=== PATIENT | female | born 1985 | race Caucasian/White ===

== ENCOUNTER 2020-11-06 07:30 | Inpatient (IN) | payer MEDICAID, SELFPAY ==
[~2020-11-06] VITALS: Ht 160 cm; Wt 112.5 kg
[2020-11-06] MEDS ORDERED: CEFAZOLIN 2 GM IVPB PREMIX 50 ML IV ONE ×2 (08:15→15:04)
[2020-11-06] MEDS ORDERED: CITRIC ACID/SODIUM CITRATE 30 ML UDC PO ONE (08:15)
[2020-11-06] MEDS ORDERED: LR 1,000 ML IV ONE (08:15)
[2020-11-06] MEDS ORDERED: METOCLOPRAMIDE HCL 10 MG/2 ML VIAL IVP ONE (08:15)
[2020-11-06 08:53] LABS: BASOPHILS # (AUTO) 0.1 K/uL (0.0-0.2); BASOPHILS % (AUTO) 0.5 % (0.0-2.0); EOSINOPHILS # (AUTO) 0.1 K/uL (0.0-0.4); EOSINOPHILS % (AUTO) 1.1 % (0.0-4.0); HEMOGLOBIN 12.9 g/dL (12.0-16.0); LYMPHOCYTES # (AUTO) 2.3 K/uL (1.0-5.5); LYMPHOCYTES % (AUTO) 20.8 % (20.5-51.5); MEAN CORPUSCULAR HEMOGLOBIN 32 pg (27-31); MEAN CORPUSCULAR HGB CONC 35 % (32-36); MEAN CORPUSCULAR VOLUME 91 fL (79.0-98.0); MONOCYTES # (AUTO) 0.8 K/uL (0.0-1.0); MONOCYTES % (AUTO) 7.2 % (1.7-9.3); NEUTROPHILS # (AUTO) 7.6 K/uL (1.8-7.7); NEUTROPHILS % (AUTO) 70.4 % (40.0-70.0); PLATELET COUNT (AUTO) 244 K/uL (130-430); RED BLOOD CELL COUNT(AUTO) 4.06 MIL/uL (4.2-6.2); RED CELL DISTRIBUTION WIDTH 14.3 % (9.0-15.0); WHITE BLOOD COUNT (AUTO) 10.9 K/uL (4.8-10.8)
[2020-11-06 09:10] LABS: BILIRUBIN,URINE NEGATIVE (NEGATIVE); BLOOD, URINE 3+ (NEGATIVE); COLOR,URINE YELLOW (YELLOW); GLUCOSE,URINE NEGATIVE (NEGATIVE); KETONES,URINE NEGATIVE (NEGATIVE); LEUKOCYTE ESTERASE ,URINE 2+ (NEGATIVE); NITRITE, URINE NEGATIVE (NEGATIVE); PH,URINE 7.5 (5.0-8.0); PROTEIN URINE NEGATIVE (NEGATIVE); UROBILINOGEN,URINE 0.2 (0.2-1.0)
[2020-11-06 09:11] LABS: CLARITY/URINE HAZY (CLEAR)
[2020-11-06 09:53] LABS: BACTERIA,URINE MODERATE /HPF (None Seen); RBC,URINE 20-50 /HPF (0-3)
[2020-11-06 11:19] VITALS: BP_SYST 132
[2020-11-06] MEDS ORDERED: ONDANSETRON HCL 4 MG/2 ML VIAL IVP PRN (13:45)
[2020-11-06] MEDS ORDERED: NALOXONE HCL 0.4 MG/ML AMP (NARCAN) IVP PRN ×3 (13:45→14:15)
[2020-11-06] MEDS ORDERED: KETOROLAC TROMETHAMINE 60 MG/2 ML VIAL IM PRN (13:45)
[2020-11-06] MEDS ORDERED: DIPHENHYDRAMINE INJ 50 MG/ML VIAL IM PRN (13:45)
[2020-11-06 13:55] VITALS: BP_SYST 132
[2020-11-06] MEDS ORDERED: MEPERIDINE HCL/PF 25 MG/ML DISP.SYRIN ONE (14:11)
[2020-11-06] MEDS ORDERED: MEPERIDINE HCL/PF 25 MG/ML DISP.SYRIN IVP PRN (14:15)
[2020-11-06] MEDS ORDERED: HYDROmorphone 1 MG/ML INJ. CARTRIDGE IVP PRN ×2 (14:15)
[2020-11-06] MEDS ORDERED: OXYTOCIN 10 UNIT/ML VIAL IV ONE (15:04)
[2020-11-06] MEDS ORDERED: LR 1,000 ML IV.SOLN IV ONE (15:04)
[2020-11-06] MEDS ORDERED: ONDANSETRON HCL 4 MG/2 ML VIAL IVP ONE (15:04)
[2020-11-06] MEDS ORDERED: DEXAMETHASONE SOD PHOSPHATE 4 MG/ML VIAL IVP ONE (15:04)
[2020-11-06] MEDS ORDERED: MORPHINE SULFATE 10MG/10ML PF AMP EP ONE (15:04)
[2020-11-06] MEDS ORDERED: ePHEDrine sulfate 50 MG/ML VIAL IVP ONE (15:04)
[2020-11-06] MEDS ORDERED: BUPIVACAINE /DEX PF 0.75% SPINAL 2 ML AMP INJ ONE (15:04)
[2020-11-06] MEDS ORDERED: NS IRRIG SOLN 1000 ML IR ONE (15:04)
[2020-11-06] MEDS ORDERED: OXYCODONE/ACETAMINOPHEN 5-325 TABLET PO PRN (16:30)
[2020-11-06] MEDS ORDERED: BISACODYL 10 MG/SUPPOSITORY RC PRN (16:30)
[2020-11-06] MEDS ORDERED: LR 1,000 ML IV SCH (16:30)
[2020-11-06] MEDS ORDERED: ANUSOL 1 EA SUPP.RECT (PREPARATION H) RC PRN (16:30)
[2020-11-06] MEDS ORDERED: LANOLIN 7 GM OINT. TP PRN (16:30)
[2020-11-06] MEDS ORDERED: DIPH-TET-PERTUS Vaccine 0.5 ML VIAL (ADACEL) I.M. PRN (16:30)
[2020-11-06] MEDS: OXYTOCIN/0.9 % SODIUM CHLORIDE 1,000 ML IV ONE ×2 (16:48→16:51)
[2020-11-06] MEDS ORDERED: SENNOSIDES/DOCUSATE SODIUM 1 TAB TABLET(SENOKOT-S) PO SCH (21:00)
[2020-11-06] MEDS ORDERED: TEMAZEPAM 15 MG CAPSULE PO PRN (21:00)
[2020-11-07 07:13] LABS: BASOPHILS # (AUTO) 0.1 K/uL (0.0-0.2); BASOPHILS % (AUTO) 0.4 % (0.0-2.0); EOSINOPHILS % (AUTO) 0.1 % (0.0-4.0); HEMATOCRIT 28.8 % (36-48); HEMOGLOBIN 9.9 g/dL (12.0-16.0); LYMPHOCYTES # (AUTO) 2.4 K/uL (1.0-5.5); LYMPHOCYTES % (AUTO) 16.1 % (20.5-51.5); MEAN CORPUSCULAR HEMOGLOBIN 32 pg (27-31); MEAN CORPUSCULAR HGB CONC 34 % (32-36); MEAN CORPUSCULAR VOLUME 93 fL (79.0-98.0); MONOCYTES # (AUTO) 0.9 K/uL (0.0-1.0); MONOCYTES % (AUTO) 6.3 % (1.7-9.3); NEUTROPHILS # (AUTO) 11.5 K/uL (1.8-7.7); NEUTROPHILS % (AUTO) 77.1 % (40.0-70.0); PLATELET COUNT (AUTO) 208 K/uL (130-430); RED BLOOD CELL COUNT(AUTO) 3.11 MIL/uL (4.2-6.2); RED CELL DISTRIBUTION WIDTH 14.2 % (9.0-15.0); WHITE BLOOD COUNT (AUTO) 14.9 K/uL (4.8-10.8)
[2020-11-07] MEDS: SIMETHICONE 80 MG TAB.CHEW PO PRN ×2 (08:52→21:41)
[2020-11-07] MEDS: DOCUSATE SODIUM 100 MG CAPSULE PO SCH ×2 (08:52→21:30)
[2020-11-07] MEDS: IBUPROFEN 600 MG TABLET PO SCH ×3 (12:05→19:26)
--- NOTE | 2020-11-07 15:58 | NUR ---
Dietitian Recommendations * Recommend continuing regular diet LP, RD Please refer to Nutrition Assessment for details. Addendum: 11/07/20 at [address] Amended: Links added.
[2020-11-07] MEDS: OXYCODONE/ACETAMINOPHEN 5-325 TABLET PO PRN ×2 (17:35→23:36)
[2020-11-08] MEDS: IBUPROFEN 600 MG TABLET PO SCH ×3 (01:30→12:10)
[2020-11-08] MEDS: DOCUSATE SODIUM 100 MG CAPSULE PO SCH (09:01)
[2020-11-08 19:06] LABS: FTA-Ab (T PALLIDUM) Non Reactive (Non Reactive)
== END 2020-11-08 15:05 | disposition home or self-care (01) | DRG 540 ==
LOC: SPU 07:51
PROVIDERS: ADMIT Obstetrics & Gynecology; ATTEND Obstetrics & Gynecology
PROC: 0UB70ZZ Excision of Bilateral Fallopian Tubes, Open Approach (ICD-10-PCS; 2020-11-06)
PROC: 10D00Z1 Extraction of Products of Conception, Low, Open Approach (ICD-10-PCS; principal; 2020-11-06 07:30)
DX: O34.211 Maternal care for low transverse scar from previous cesarean delivery (principal); Z20.822 Contact with and (suspected) exposure to COVID-19; Z37.0 Single live birth; Z3A.00 Weeks of gestation of pregnancy not specified
CPT/HCPCS: 36415; 81000; 82947; 85025; 86592; 86780; 86886; 86900; 86901; 87086; 88302; 90715; 94760; J0690; J1100; J2175; J2274; J2405; J2590; J2765; J3490; J7120